=== PATIENT | female | born 1995 | race Caucasian/White ===

== ENCOUNTER 2018-09-21 14:56 | Inpatient (IN) | payer BC, OTHER ==
[2018-09-21] MEDS ORDERED: Lidocaine 2% MPF 10 ML AMP (For Epidural Use) ONE (15:00)
[2018-09-21] MEDS ORDERED: Bupivacaine/Epinephrine 0.25% 30 ML VIAL ONE (15:00)
[2018-09-21 15:44] VITALS: BMI 27.1
[2018-09-21] MEDS ORDERED: NS / Oxytocin 40 units/1000ml 1,000 ML IV PRN (15:49)
[2018-09-21] MEDS ORDERED: Docusate 100 MG CAP PO PRN (15:49)
[2018-09-21] MEDS ORDERED: Lidocaine 1% (PF) 30 ML VIAL SC PRN (15:49)
[2018-09-21] MEDS ORDERED: Promethazine HCl 25 MG/ML VIAL IM PRN ×2 (15:49→19:33)
[2018-09-21] MEDS ORDERED: HYDROcodone/Acetaminophen 5/325 mg Tablet PO PRN ×2 (15:49)
[2018-09-21] MEDS ORDERED: hydrALAZINE 20 MG/ML VIAL SLOW IVP PRN (15:49)
[2018-09-21] MEDS ORDERED: Ondansetron PF 4 MG/2 ML Vial IVP PRN ×2 (15:49→19:33)
[2018-09-21] MEDS ORDERED: Ibuprofen 800 MG TAB PO PRN (15:49)
[2018-09-21] MEDS ORDERED: Butorphanol Tartrate 1 MG/ML VIAL SLOW IVP PRN (15:49)
[2018-09-21] MEDS ORDERED: NS w/ Oxytocin 10 units 500 ML IV SCH (16:00)
[2018-09-21 16:54] LABS: Hemoglobin 11.6 g/dL (12.0-16.0); Mean Corpuscular HGB CONC 34.3 g/dL (32.0-36.0); Mean Corpuscular Hemoglobin 30.8 pg (27.0-31.0); Mean Corpuscular Volume 89.8 fL (78.0-98.0); Mean Platelet Volume 8.6 fL (7.4-10.4); Platelet Count 184 thou/uL (130-400); RBC Distribution Width 11.8 % (11.5-14.5); Red Blood Cell (RBC) Count 3.77 mill/uL (4.20-5.40); White Blood Cell (WBC) Count 11.8 thou/uL (4.8-10.8)
[2018-09-21 17:32] LABS: HBSAg Index 0.58 S/CO (0-0.99); Hep B Surf Ag Non-Reactive S/CO (NonReactive); Syphilis Antibody Nonreactive (Nonreactive); Syphilis Antibody Index 0.03 S/CO (<1.00 Non-Reactive)
[2018-09-21] MEDS ORDERED: Fentanyl 4 mcg/Bup 0.1% Cadd 100 ML ONE (18:55)
[2018-09-21] MEDS ORDERED: Naloxone HCl 0.4 mg/ml Vial IVP PRN ×2 (19:33)
[2018-09-21] MEDS ORDERED: Acetaminophen 325 MG TAB PO PRN (19:33)
[2018-09-21] MEDS ORDERED: ePHEDrine/0.9% NaCl/PF SYRINGE 50 mg/10 ml SLOW IVP PRN (19:33)
[2018-09-21] MEDS ORDERED: diphenhydrAMINE 50 MG/ML VIAL IVP PRN (19:33)
[2018-09-21] MEDS ORDERED: Lactated Ringer's 500 ML IV PRN (19:33)
[2018-09-21] MEDS ORDERED: Communication Order-Pharmacy FS SCH (19:45)
[2018-09-21] MEDS ORDERED: Fentanyl 4 mcg/Bupivacaine 0.1% Cassette 100 ML EPIDURAL SCH (19:45)
[2018-09-21] MEDS: Lactated Ringer's 1,000 ML IV SCH (20:00)
[2018-09-22] MEDS: Lactated Ringer's 1,000 ML IV SCH ×3 (03:00→16:27)
[2018-09-22] MEDS ORDERED: Fentanyl 4 mcg/Bup 0.1% Cadd 100 ML ONE (03:33)
[2018-09-22] MEDS ORDERED: Misoprostol 200 MCG TAB ONE (06:58)
[2018-09-22] MEDS ORDERED: Lanolin Ointment 7 GM TUBE TOP PRN (07:33)
[2018-09-22] MEDS ORDERED: Benzocaine-Menthol 82.5 ML CAN TOP PRN (07:33)
[2018-09-22] MEDS ORDERED: HYDROcodone/Acetaminophen 5/325 mg Tablet PO PRN ×2 (07:33)
[2018-09-22] MEDS ORDERED: Milk Of Magnesia 30 ML UDCUP PO PRN (07:33)
[2018-09-22] MEDS ORDERED: Bisacodyl 10 MG SUPP PR PRN (07:33)
[2018-09-22] MEDS ORDERED: hydrALAZINE 20 MG/ML VIAL SLOW IVP PRN (07:33)
[2018-09-22] MEDS ORDERED: Ondansetron PF 4 MG/2 ML Vial IVP PRN (07:33)
[2018-09-22] MEDS ORDERED: NS / Oxytocin 40 units/1000ml 1,000 ML IV SCH (07:45)
[2018-09-22] MEDS ORDERED: Adacel (T-DAP) 0.5 ML SYRINGE IM ONE (09:00)
--- NOTE | 2018-09-22 10:34 | DN ---
DATE OF PROCEDURE: 09/22/2018 PREOPERATIVE DIAGNOSES: 1. A 23-year-old, G2, P0-0-1-0, at 38 weeks and 6 days, who presents in active labor. 2. Leakage of fluid since 10 p.m. without good show of fluid leakage upon presentation. 3. Artificial rupture of membranes for copious clear fluid. 4. Group B Streptococcus negative. POSTOPERATIVE DIAGNOSES: 1. A 23-year-old, G2, P0-0-1-0, at 38 weeks and 6 days, who presents in active labor. 2. Leakage of fluid since 10 p.m. without good show of fluid leakage upon presentation. 3. Artificial rupture of membranes for copious clear fluid. 4. Group B Streptococcus negative. 5. Live born female with Apgars of 8 and 9 at 1 and 5 minutes respectively. PROCEDURE PERFORMED: Spontaneous vaginal delivery. ANESTHESIA: Epidural. ESTIMATED BLOOD LOSS: 220 mL. CLINICAL HISTORY: The patient is a 23-year-old, G2, P0-0-1-0, who called the office at 38 weeks and 6 days with the complaints of leakage of fluid since 10 p.m. the night prior. The patient was advised to go directly to the hospital. She was noted to be uncomfortable with her contractions at the time of admission and was 2 cm, 80% effaced, and -3 station. The patient was admitted, and there was not significant amount of fluid noted on her exam. Amniotomy was performed for clear fluid with copious amounts. The patient continued to progress and she requested an epidural for maternal analgesia. The patient continued to progress without any need for Pitocin and got to complete cervical dilation in +2 station. PROCEDURE IN DETAIL: With good maternal effort, The patient was able to bring the vertex to the position. The head was delivered followed by the anterior shoulder, then the posterior shoulder, then the remainder of the 's body. The infant cried spontaneously. The cord was doubly clamped and cut by the father of the baby and placed on maternal abdomen with continued stimulation. The baby was bulb suctioned at the perineum. The placenta was then delivered spontaneously intact with a three-vessel cord. Uterine massage with a bimanual exam noted a firm uterus. Exploration of the vagina introitus and cervix noted only a small midline supra-urethral abrasion, that was hemostatic, otherwise no lacerations. A repair was not done. The patient tolerated the procedure well and was cleansed of all debris and allowed to recover in Labor and Delivery in satisfactory condition with her . Again, the infant was a live born female, was vigorous with Apgars of 9 and 9 at 1 and 5 minutes respectively. Weight was unavailable at the time of delivery. There were no other issues surrounding this delivery. All needle, sponge, lap, and instrument counts were correct x2 at the end of the procedure. Job ID: [id number]
[2018-09-22] MEDS ORDERED: Bupivacaine/Epinephrine 0.25% 30 ML VIAL ONE (11:11)
[2018-09-22] MEDS: Ferrous Sulfate 325 MG TAB PO SCH ×2 (11:54→16:27)
[2018-09-22] MEDS: Prenatal Vitamin 1 TAB PO SCH (11:55)
[2018-09-22] MEDS: Docusate Calcium (SURFAK) 240 MG CAP PO SCH ×2 (11:55→21:29)
[2018-09-22] MEDS: Ibuprofen 800 MG TAB PO SCH ×2 (14:20→21:29)
[2018-09-23] MEDS: Lactated Ringer's 1,000 ML IV SCH ×3 (01:25→17:52)
[2018-09-23] MEDS: Ibuprofen 800 MG TAB PO SCH ×3 (05:41→22:09)
[2018-09-23] MEDS: Ferrous Sulfate 325 MG TAB PO SCH ×2 (09:43→18:11)
[2018-09-23] MEDS: Prenatal Vitamin 1 TAB PO SCH (09:44)
[2018-09-23] MEDS: Docusate Calcium (SURFAK) 240 MG CAP PO SCH ×2 (09:44→22:09)
[2018-09-24] MEDS: Lactated Ringer's 1,000 ML IV SCH ×2 (01:59→09:42)
[2018-09-24] MEDS: Ibuprofen 800 MG TAB PO SCH (05:23)
[2018-09-24 09:41] VITALS: BP 119/65; TEMP 98.5
[2018-09-24] MEDS: Ferrous Sulfate 325 MG TAB PO SCH (09:42)
[2018-09-24] MEDS: Prenatal Vitamin 1 TAB PO SCH (10:19)
[2018-09-24] MEDS: Docusate Calcium (SURFAK) 240 MG CAP PO SCH (10:19)
== END 2018-09-24 13:00 | disposition home or self-care (01) | DRG 807 ==
LOC: L&D/OP 14:56 → L&D 16:35 → 3SW 09-22 15:45
PROVIDERS: ADMIT Obstetrics & Gynecology; ATTEND Obstetrics & Gynecology
PROC: 10E0XZZ Delivery of Products of Conception, External Approach (ICD-10-PCS; principal; 2018-09-22)
PROC: 10907ZC Drainage of Amniotic Fluid, Therapeutic from Products of Conception, Via Natural or Artificial Opening (ICD-10-PCS; 2018-09-22)
DX: O99.344 Other mental disorders complicating childbirth (principal); Z37.0 Single live birth; F41.9 Anxiety disorder, unspecified; Z3A.38 38 weeks gestation of pregnancy; O71.89 Other specified obstetric trauma
CPT/HCPCS: 36415; 51702; 85027; 85461; 86780; 86850; 86870; 86900; 86901; 87340; 90384; 96372; 99285; J2001